=== PATIENT | male | born 1955 | race Caucasian/White ===

== ENCOUNTER 2017-11-19 12:49 | Emergency (ER) | payer OTHER ==
[2017-11-19] MEDS ORDERED: NS 1,000 ML IV ONE (13:15)
--- NOTE | 2017-11-19 13:49 | EDPHY ---
HPI/HX/ROS/PE/MDM Narrative: CHIEF COMPLAINT: Malaise, blurred vision, hyperglycemia HPI: The patient is a 62 y/o male with a history of borderline diabetes arriving with his friend for evaluation of general malaise, blurred vision, and elevated BGL. For several weeks he's had excessive thirst and urination and over the last few days he developed blurred vision, headache, and generally feels "crappy." He usually works out at the gym three times per week, but has been too exhausted to work out recently. He also notes a 10lbs weight loss since symptoms began. Due to concern for diabetes, he bought a home BGL testing kit last night and measured his fasting BGL at 312. He scheduled an appointment with his PCP back in [place] for next Wednesday, but due to continued and worsening symptoms decided to come to the ED today for evaluation. He denies vomiting, fever, chest pain, abdominal pain, recent illness. He has a history of alcoholic pancreatitis and was most recently admitted for this in January 2017. 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 REVIEW OF SYSTEMS: Aside from elements discussed in the HPI, a comprehensive 10-point review of systems was reviewed and is negative. PMH: Alcoholic pancreatitis - sober for 3 years, last hospitalized 2016. SOCIAL HISTORY: Friend at bedside is a urologist. Lives in [place], in [place] until Wednesday. PHYSICAL EXAM: General:Patient is alert, in no acute distress. ENT:Eyes are normal to inspection. ENT inspection normal. Neck: Normal inspection. Full range of motion. Respiratory:No respiratory distress. Breath sounds normal bilaterally. Cardiovascular: Regular rate and rhythm. Strong peripheral pulses. Normal cap refill. Abdomen:The abdomen is nontender to palpation. There are no peritoneal signs. Back: Normal to inspection. No tenderness to palpation. Skin: Normal color. No rash. Warm and dry. Extremities: Normal appearance. Full range of motion. Neuro: Oriented x3. Normal motor function. Normal sensory function. ED Course: This is a 62 y/o male with borderline prediabetes who presents with a few week history of malaise, polyuria, and polydipsia now associated with significant fatigue and mild blurred vision. A home BGL kit last night showed a fasting BGL of 312 so he came to the ED for evaluation. Exam is unremarkable. Plan for IV, labs, 1L IV NS. BGL here is 258. 1423: Consulted with Dr. Delarosa, hospitalist. He recommends starting metformin therapy for stabilization and holding off on insulin until he is evaluated by his PCP back home. MDM: This patient presents with new onset diabetes mellitus, which I suspect is likely related to his chronic pancreatitis. Despite this, he is shows no signs of DKA or severe dehydration. He was given IV hydration and a dose of metformin here. I think he is safe for outpatient management until he sees his primary care physician in the next few days. We discussed strict return precautions in his is a physician, all are in agreement with this plan. - Data Points Laboratory Results: Laboratory Results 11/19/17 13:44 11/19/17 13:44 11/19/17 11/19/17 13:44 13:44 WBC 4.18 10^3/uL 10^3/uL (3.80-9.50) RBC 4.56 10^6/uL 10^6/uL (4.40-6.38) Hgb 13.1 g/dL L g/dL (13.7-17.5) Hct 38.5 % L % (40.0-51.0) MCV 84.4 fL fL (81.5-99.8) MCH 28.7 pg pg (27.9-34.1) MCHC 34.0 g/dL g/dL (32.4-36.7) RDW 12.9 % % (11.5-15.2) Plt Count 196 10^3/uL 10^3/uL (150-400) MPV 12.1 fL H fL (8.7-11.7) Neut % (Auto) 61.5 % % (39.3-74.2) Lymph % (Auto) 30.9 % % (15.0-45.0) [place] % (Auto) 6.0 % % (4.5-13.0) Eos % (Auto) 0.7 % % (0.6-7.6) Baso % (Auto) 0.7 % % (0.3-1.7) Nucleat RBC Rel Count 0.0 % % (0.0-0.2) Absolute Neuts (auto) 2.57 10^3/uL 10^3/uL (1.70-6.50) Absolute Lymphs (auto) 1.29 10^3/uL 10^3/uL (1.00-3.00) Absolute Monos (auto) 0.25 10^3/uL L 10^3/uL (0.30-0.80) Absolute Eos (auto) 0.03 10^3/uL 10^3/uL (0.03-0.40) Absolute Basos (auto) 0.03 10^3/uL 10^3/uL (0.02-0.10) Absolute Nucleated RBC 0.00 10^3/uL 10^3/uL (0-0.01) Immature Gran % 0.2 % % (0.0-1.1) Immature Gran # 0.01 10^3/uL 10^3/uL (0.00-0.10) Sodium 135 mEq/L mEq/L (135-145) Potassium 4.0 mEq/L mEq/L (3.3-5.0) Chloride 103 mEq/L mEq/L (97-110) Carbon Dioxide 24 mEq/l mEq/l (22-31) Anion Gap 8 mEq/L mEq/L (8-16) BUN 18 mg/dL mg/dL (7-23) Creatinine 1.0 mg/dL mg/dL (0.7-1.3) Estimated GFR > 60 Glucose 258 mg/dL H mg/dL (70-100) Calcium 9.4 mg/dL mg/dL (8.5-10.4) Medications Given: Discontinued Medications Sodium Chloride (Ns) 1,000 mls @ 0 mls/hr IV EDNOW ONE; Wide Open PRN Reason: Protocol Stop: 11/19/17 13:16 Last Admin: 11/19/17 14:00 Dose: 1,000 mls General Time Seen by Provider: 11/19/17 13:13 Initial Vital Signs: Initial Vital Signs Temperature (C) 36.5 C 11/19/17 12:52 Heart Rate 76 11/19/17 12:52 Respiratory Rate 18 11/19/17 12:52 Blood Pressure 155/95 H 11/19/17 12:52 O2 Sat (%) 96 11/19/17 12:52 O2 Delivery Mode Room Air Allergies/Adverse Reactions: No Known Allergies Allergy (Unverified 11/19/17 12:56) Home Medications: Medication Instructions Recorded Allopurinol 11/19/17 Fenofibrate 11/19/17 Norvasc 10 mg (*) 11/19/17 Omeprazole 11/19/17 metFORMIN HCL [Metformin HCl] 500 mg PO DAILY #7 tablet 11/19/17 traZODone 11/19/17 Departure - Departure Disposition: Home, Routine, Self-Care Clinical Impression: Diabetes, Hyperglycemia Condition: Good Instructions: Metformin (By mouth), Diabetic Hyperglycemia (ED) Additional Instructions: 1. Take Metformin as prescribed until directed otherwise by your primary care provider. 2. Follow up with your primary care provider as prescribed next week. 3. Return to the ED for any worsening of condition. Referrals: STEVEN LY MD [Other] - As per Instructions Prescriptions: metFORMIN HCL [Metformin HCl] 500 mg PO DAILY #7 tablet Report Scribed for: Fadi Garcia Report Scribed by: Theresa Jean Baptiste Date of Report: 11/19/17 Time of Report: 13:49 Physician Review and Approval Statement: Portions of this note were transcribed by an ED scribe. I personally performed the history, physical exam, and medical decision making; and confirm the accuracy of the information in the transcribed note.
[2017-11-19 13:59] LABS: PLATELET COUNT 196 10^3/uL (150-400)
[2017-11-19] MEDS ORDERED: metFORMIN HCL 500 MG TAB PO ONE (14:27)
[2017-11-19 15:12] VITALS: BP 121/69
== END 2017-11-19 15:10 | disposition home or self-care (01) ==
DX: E11.65 Type 2 diabetes mellitus with hyperglycemia (principal); E86.9 Volume depletion, unspecified; Z79.84 Long term (current) use of oral hypoglycemic drugs